=== PATIENT | female | born 1965 | race American Indian/Alaskan Native ===

== ENCOUNTER 2020-10-27 02:43 | Emergency (ER) | payer OTHER ==
[2020-10-27 03:15] VITALS: BP 115/60
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
== END 2020-10-27 11:03 | disposition home or self-care (01) ==
LOC: ED 02:43
DX: M25.512 Pain in left shoulder (principal); M54.5 Low back pain
CPT/HCPCS: 72100; 99283